=== PATIENT | male | born 1940 | race Caucasian/White ===

== ENCOUNTER 2020-03-07 06:15 | Day surgery (SDC) | payer MEDICARE, OTHER ==
[~2020-03-07] VITALS: Ht 180.3 cm; Wt 125.2 kg
[~2020-03-07 06:15] MED LIST: ASPIRIN81 MG PO; ELIGARD22.5 MG SUB-Q; FLUOXETINE HCL20 MG PO; FUROSEMIDE20 MG PO; LIPITOR20 MG; MILK THISTLE175 M3 PO; MUPIROCIN1 GM; PREDNISONE20 MG PO; PROBIOTIC1 EAC2 PO; SAW PALMETTO500 MG PO; TRIAMCINOLONE A15 G1 TOP; VITAMIN B-12100 MCG PO; VITAMIN D-32000 UNIT PO; XTANDI40 MG PO; ZESTRIL40 MG PO
[2020-03-07] MEDS ORDERED: ABIRATERONE AC250 MG PO (06:38)
--- NOTE | 2020-03-07 08:40 | NUR ---
03/07/20 0840 Avis Gupta 0825 PT ARRIVED TO PACU ON 4L VIA, RESP EVEN AND UNLABORED. PT COUGHING OFF AND ON WITH MASK OVER FACE. PT DENIES NAUSEA AND PAIN. PT TALKGING TO RN AND RESTING IN BED WITH EYES CLOSED OFF AND ON. 0828 O2 REMOVED. 0830 PT SIPPING WATER AND SITTING IN HIGH FOWLERS. PLAN OF CARE DISCUSSED. PT PLACED DENTURE IN HIS MOUTH. VSS.
--- NOTE | 2020-03-07 13:18 | OR ---
[facility] [address] [place], [place] [address] Signed DATE OF OPERATION: 03/07/2020 SURGEON: Yessica Benitez MD PREOPERATIVE DIAGNOSES: 1. Persistent anemia, unknown etiology. 2. Metastatic prostate cancer. 3. Iron infusion therapy. POSTOPERATIVE DIAGNOSES: 1. Antral gastritis without ulceration. 2. Sigmoid diverticulosis. PROCEDURES: 1. Esophagogastroduodenoscopy with biopsy. 2. Total colonoscopy to cecum with biopsy of rectum. ANESTHESIA: Intravenous sedation, propofol infusion; Yessica Rollins CRNA. INDICATION: This markedly debilitated 79-year-old white man is a patient of Dr. Shah, and recently Dr. Flores. He is noted to have persistent iron deficiency anemia. This has been minimally responsive to iron infusion therapy. He is known to have metastatic prostate cancer. He has not had radiation therapy to suggest radiation proctitis and has had no overt hematemesis or blood per rectum. He has numerous comorbidities including his obesity and remain symptomatic with a urinary frequency. He is referred for urgent upper endoscopy and colonoscopy to assess source of iron-deficiency anemia. We are mindful of the COVID-19 pandemic and case has been reviewed and he is acceptable under current parameters for endoscopy and colonoscopy. He and his family understand the risks of bleeding, infection, perforation, failure of diagnosis, misdiagnosis, and other unforeseen complications and wished to proceed. FINDINGS: Safe sedation was undertaken with full respiratory precautions per protocol. Marked good benefit from anesthesia provided propofol infusional sedation was noted, particularly given his obesity and sleep apnea. Upper endoscopy showed antral gastritis without ulceration. Mild duodenitis, but no norman ulceration and no blood. The esophagus was normal. CLOtest was negative. Electronically Signed By: YESSICA BENITEZ MD 03/07/20 1318 PATIENT NAME: VAZQUEZ CARRILLO OPERATIVE REPORT DATE OF : 36 REPORT #: [id number] PHYSICIAN: YESSICA BENITEZ MD PCP: ZAIRE HSAH DO REPORT IS CONFIDENTIAL AND NOT TO BE RELEASED WITHOUT AUTHORIZATION [facility] [address] [place], [place] [address] Signed On colonoscopy, the prep was good. Complete colonoscopy was undertaken of the cecum. The only findings of note were diverticular change of the sigmoid. There was no sign of polyps, colitis, or cancer. A biopsy was taken of the rectum to assess for occult colitis. DESCRIPTION OF PROCEDURE: He was brought to the operating room #3, serving as endoscopy suite, and placed in lateral decubitus position. He was given intravenous sedation with propofol infusional technique with full cardiopulmonary monitoring. A bite block had been placed. The Olympus video upper endoscope was passed in the hypopharynx. The vocal cords appeared normal. Scope was advanced to the esophagus throughout its length, it was normal. Scope was advanced to the stomach, which was insufflated with air. Rugal folds were normal. Examination of the antrum showed chronic gastritis. Pylorus was normal. Scope was passed through into the duodenum. The second and third portions were reasonably normal. The bulbar portion was mildly inflamed. Biopsies were obtained there. The scope was withdrawn carefully through the channel and there was no evidence of ulceration. The scope was withdrawn to the antrum and biopsies taken of the antrum for both JEREMY and pathologic testing. Retroflexed view showed a normal flap valve. The scope was withdrawn to the distal esophagus, which showed normal mucosa. Careful withdrawal of scope showed no other findings of concern. Plans were then made for colonoscopy. Digital rectal examination was normal. An Olympus video colonoscope was passed in the rectum and manipulated throughout the colon, ultimately intubating the cecum itself. The ileocecal valve and appendiceal orifice were normal. The scope was withdrawn. Examination showed no sign of abnormality into the sigmoid, where diverticula were noted. Further withdrawal showed no other abnormality. Biopsies were taken of the rectum after retroflexed view to assess for occult colitis. There were no polyps and certainly no cancer. Scope was removed. The was patient taken to recovery room in good condition. CONCLUDING DIAGNOSES: Source of anemia is uncertain. As he is taking between 5 and 10 mg of prednisone daily and he does have antral gastritis and mild duodenitis. He is at increased risk for ulceration. Options of management would include PPI medication or a side to protective agent such as Carafate. The latter may be more appropriate. We will prescribe Carafate 1 g p.o. b.i.d. on empty stomach. During that time that, he is anticipated to be on steroids. It will likely improve his chances of healing of his antral gastritis as well. He will return to the ongoing care of Dr. Flores and Dr. Shah, otherwise. Yessica Benitez MD Electronically Signed By: YESSICA BENITEZ MD 03/07/20 1318 PATIENT NAME: VAZQUEZ CARRILLO OPERATIVE REPORT DATE OF : 36 REPORT #: [id number] PHYSICIAN: YESSICA BENITEZ MD PCP: ZAIRE SHAH DO REPORT IS CONFIDENTIAL AND NOT TO BE RELEASED WITHOUT AUTHORIZATION [place] [id number] [place] [address] Signed /MODL /[id number] cc: MD Zaire Garcia DO Copies: MONICA FLORES MD, ARIAN DO ~ Electronically Signed By: YESSICA BENITEZ MD 03/07/20 1318 PATIENT NAME: GERARDOVAZQUEZ OPERATIVE REPORT DATE OF : 36 REPORT #: [id number] PHYSICIAN: YESSICA BENITEZ MD PCP: ZAIRE SHAH DO REPORT IS CONFIDENTIAL AND NOT TO BE RELEASED WITHOUT AUTHORIZATION
--- NOTE | 2020-03-07 13:57 | EKG ---
[facility] [address] [place] [address] Signed Sinus bradycardia Inferior infarct , age undetermined Abnormal ECG No previous ECGs available Confirmed by RODRIGO QUIROGA MD ([id number]) on 03/07/2020 1:57:21 PM Electronically Signed By: RODRIGO QUIROGA MD 03/07/20 1357 PATIENT NAME: VAZQUEZ CARRILLO Electrocardiogram DATE OF : 36 PHYSICIAN: RODRIGO QUIROGA MD REPORT #: [id number] REPORT IS CONFIDENTIAL AND NOT TO BE RELEASED WITHOUT AUTHORIZATION
--- NOTE | 2020-03-10 13:40 | PATH ---
[facility] [address] [place], [place] [address] Signed SPECIMEN(S): A DUODENUM BULB SPECIMEN(S): B ANTRUM/PYLORUS SPECIMEN(S): C DISTAL LOWER ESOPHAGUS SPECIMEN(S): D RECTUM SPECIMEN SOURCE: A. DUODENUM BULB B. ANTRUM/PYLORUS C. DISTAL LOWER ESOPHAGUS D. RECTUM CLINICAL HISTORY: Preop: Anemia. Postop: Antral gastritis, duodenitis, diverticulosis. MICROSCOPIC DESCRIPTION: Histologic sections of all submitted blocks are examined by light microscopy. These findings, together with the gross examination, support the pathologic diagnosis. FINAL PATHOLOGIC DIAGNOSIS: A. Duodenum, bulb, biopsy: - Ulcerated duodenal mucosa with reactive/regenerative changes and surface foveolar metaplasia. - Negative for Helicobacter organisms on HE stain. - Negative for dysplasia or malignancy. B. Stomach, antrum/pylorus, biopsy: - Antral/oxyntic type mucosa with lamina propria atrophy. - Negative for Helicobacter organisms on HE stain. - Negative for active inflammation. - Negative for dysplasia or malignancy. C. Esophagus, distal lower, biopsy: - Squamous mucosa with minimal chronic inflammation and reactive changes. - Negative for intestinal metaplasia, dysplasia, or malignancy. D. Rectum, biopsy: - Rectal mucosa with no histopathologic abnormality. - Negative for dysplasia or malignancy. COMMENT: As part of [facility] Quality Improvement Program, parts A and B of this case were reviewed by another member of our pathology staff. NAL: :cml:C2NR PATIENT NAME: GERARDOVAZQUEZ PATHOLOGY DATE OF : 36 REPORT #: [id number] PHYSICIAN: SHRUTI MENON PCP: ZAIRE SHAH DO REPORT IS CONFIDENTIAL AND NOT TO BE RELEASED WITHOUT AUTHORIZATION [facility] [address] [facility] [place] [place] [address] Signed GROSS DESCRIPTION: Four specimens are received in four containers, labeled "MS." A. The specimen, labeled "MS, 1," and designated on the requisition "duodenal bulb," is received in formalin and consists of a single beavers soft tissue fragment that measures 0.4 cm in greatest dimension. The specimen is entirely submitted in cassette (A1). B. The specimen, labeled "MS, 2," and designated on the requisition "antrum/pylorus," is received in formalin and consists of two beavers soft tissue fragments that measure 0.3 cm in greatest dimension. The specimen is entirely submitted in cassette (B1). C. The specimen, labeled "MS, 3," and designated on the requisition "distal lower esophagus," is received in formalin and consists of two beavers soft tissue fragments that measure 0.4 cm in greatest dimension. The specimen is entirely submitted in cassette (C1). D. The specimen, labeled "MS, 4," and designated on the requisition "rectum," is received in formalin and consists of two beavers soft tissue fragments that measure 0.4 cm in greatest dimension. The specimen is entirely submitted in cassette (D1). AT (under the direct supervision of a pathologist) The Gross Description was prepared using a voice recognition system. The report was reviewed for accuracy; however, sound-alike word errors, addition and/or deletions may occur. If there is any question about this report, please contact Client Services. PERFORMING LABORATORY: The technical component was performed by [facility], [address] [place] [id number] (Livestock Auctioneer: Jennifer Kumari MD; CLIA# [id number]). Professional interpretation was performed by [facility], [place] [facility], [address] [facility] [address] [address] (CLIA# [id number]). Diagnostician: Kaitlin Galvan MD Pathologist Electronically Signed 03/10/2020 Copies: ~ PATIENT NAME: VAZQUEZ CARRILLO PATHOLOGY DATE OF : 36 REPORT #: [id number] PHYSICIAN: SHRUTI PATHOLOGY PCP: ZAIRE SHAH DO REPORT IS CONFIDENTIAL AND NOT TO BE RELEASED WITHOUT AUTHORIZATION
== END 2020-03-07 09:10 | disposition home or self-care (01) ==
LOC: DS 06:15 → OPS 06:15 → DS 06:45 → OPS 06:45
PROVIDERS: Surgery
PROC: 0DB78ZX Excision of Stomach, Pylorus, Via Natural or Artificial Opening Endoscopic, Diagnostic (ICD-10-PCS; 2020-03-07)
PROC: 0DB38ZX Excision of Lower Esophagus, Via Natural or Artificial Opening Endoscopic, Diagnostic (ICD-10-PCS; 2020-03-07)
PROC: 0DBP8ZZ Excision of Rectum, Via Natural or Artificial Opening Endoscopic (ICD-10-PCS; principal; 2020-03-07 06:45)
PROC: 0DB98ZX Excision of Duodenum, Via Natural or Artificial Opening Endoscopic, Diagnostic (ICD-10-PCS; 2020-03-07 06:45)
DX: D50.9 Iron deficiency anemia, unspecified (principal); K29.50 Unspecified chronic gastritis without bleeding; K57.30 Diverticulosis of large intestine without perforation or abscess without bleeding; K29.80 Duodenitis without bleeding; K20.9 Esophagitis, unspecified; C61 Malignant neoplasm of prostate; I10 Essential (primary) hypertension; F32.9 Major depressive disorder, single episode, unspecified; G47.30 Sleep apnea, unspecified; I63.9 Cerebral infarction, unspecified; E66.9 Obesity, unspecified; Z79.899 Other long term (current) drug therapy; Z86.73 Personal history of transient ischemic attack (TIA), and cerebral infarction without residual deficits; Z68.38 Body mass index [BMI] 38.0-38.9, adult; Z79.82 Long term (current) use of aspirin; Z87.891 Personal history of nicotine dependence
CPT/HCPCS: 36415; 80053; 85025; 88305; 93005; 93010; J2704